=== PATIENT | female | born 1970 | race Caucasian/White ===

== ENCOUNTER 2020-09-07 07:45 | Outpatient (REF) | payer BC, SELFPAY ==
--- NOTE | ~2020-09-07 | XR_ITS ---
EXAMINATION: XR SHOULDER, RIGHT CLINICAL INFORMATION: Pain COMPARISON: May 30, 2014 TECHNIQUE: Three-view of the right shoulder. FINDINGS: There is no evidence of acute fracture or dislocation of the right shoulder. No calcific tendinitis. Glenohumeral joint is maintained with minimal inferior spurring seen. Acromioclavicular joint unremarkable. There is again noted to be subcutaneous calcification present. XR/XR shoulder RT min 2V IMPRESSION: No significant right shoulder abnormality appreciated.
== END 2020-09-07 07:46 | disposition home or self-care (01) ==
LOC: HO.HOSX 07:45
PROVIDERS: Visit Provider Orthopaedic Surgery
DX: M25.511 Pain in right shoulder (principal)
CPT/HCPCS: 20610; 73030; J1100

== ENCOUNTER 2025-06-06 11:28 | Outpatient (AMB) | payer MEDICAID, SELFPAY ==
--- NOTE | 2025-06-06 11:29 | A.OFFVIS_ITS ---
Vital Signs 06/06/25 11:33 Height 5 ft 5 in Weight 188 lb BMI 31.3 BP 124/90 H Blood Pressure Location Rt brachial Position Sitting Respiration 16 Pulse 87 Pulse Source Pulse Oximeter Pulse Oximetry (%) 97 Oxygen Delivery Method Room Air Intake Visit Reasons: ENP hx migraines Allergies sumatriptan Adverse Reaction (Severe, Verified 06/06/25 11:48) Palpitations HPI Comments Details: Elena is a 54-year-old female patient with a past medical history of hyperlipidemia, depression, insomnia, arthritis, here today for a headache evaluation. The patient tells me today that she saw a neurologist in the past. During a pregnanacy her headache had improved and afterwards had been less intense for many years. Over the course of the last few months however she has had an increase in her headaches. They started to awaken for sleep. Currently, her headaches are occurring 3-4 days per week lasting either hours up to a full day and can be mild up to severe depending on the headache. Headaches are often throbbing and pulsating but can be pressure-like. They are primarially left-sided behind the temporal and eyes and radiate down to the neck. They are accompanied by nausea, light sensitivity, and fatigue. There are no autonomic features. Stress, dehydration, and sleep deprivation piecer up triggers. Headaches worsened with activity and improves slightly with rest. Leading up to her headaches she does have some neck pain. She denies visual auras but does have some RUE tingling when her headaches become intense in conjunction with the neck pain. She is currently on supplemental estrogen which she has been on for a year without any significant change in her headaches with use of the estrogen. Headache characteristics: Time of onset:Since childhood but worse over the course of the last few months. Location: Left-sided. Temporal and retroorbital Radiation:No Positional component:No Character:Throbbing and pressure Severity:Variable Duration: Hours up to days Frequency:3-4 days per week Acute aggravating factors:Activity and bending over Acute relieving factors:Rest Associated symptoms:Nausea, light sensitivity, and fatigue Aura:None Headache triggers:Sleep deprivation, dehydration, and stress Relation to menses: 2 years in menopause but in the past had migraines with her menses Other related background information: Sleep:Has been sleeping horrible since menopause. She has tried marajuana gummies but they do not help Stressors: She notes high levels of stress at home Hydration:Drinks 64-96oz per day Caffeine intake: 2 cups coffee per day in the morning hours Alcohol intake:None Substance use:None Tobacco use:None Last eye exam: >1 year but within 2 Last dental visit:Last week, she has a history of clenching and uses a mouth guard at night History of head injury: Concussion at 19 but no LOC Past medication trials: Sumatriptan- Allergic reaction with cold sweats, rapid pulse and change in breathing Excedrin- Works most of the time Prior workup: MRI brain without contrast 05/05/2025: No acute intracranial abnormality. T2 FLAIR hyperintense foci within the white matter, nonspecific but most likely reflecting chronic small-vessel disease. MRI cervical spine without contrast 05/05/2025: Mild multilevel degenerative changes of the cervical spine. 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 Review of Systems Const All systems reviewed & are unremarkable except as noted in HPI and below Physical Exam Const General: cooperative, healthy appearing, comfortable and no acute distress Nutritional Appearance: well nourished Orientation/consciousness: patient oriented x3 Limitations: no limitations HEENT Head: Yes normal to inspection and Yes normocephalic Eyes General: appearance normal, both eyes and all related structures Visual Oh: normal visual oh by confrontation Alignment and Position: alignment normal Periorbital: periorbital findings normal Eyelids: Yes eyelids normal Conjunctivae: conjunctivae normal Sclerae: sclerae normal Direct Ophthalmoscopy: normal light reflex, no papilledema and fundi normal bilaterally Neck Neck: Yes normal visual inspection and Yes full ROM General: Yes no CVA tenderness Back/Spine/Pelvis Back: no CVA tenderness Cervical Spine: normal cervical lordosis Thoracic/Lumbar Spine: thoracic and lumbar spine normal to inspection Neuro General: patient oriented x3, tone normal and deep tendon reflexes 2+ bilaterally Cranial nerves: Yes CN's II-XII intact bilaterally and Yes Facial sensation intact/muscles of mastication intact Cognition (Neuro): normal cognition Gait exam (Neuro): Normal gait present Motor exam (neuro): 5/5 motor strength present throughout and no tremor noted Sensory Exam: double simultaneous stimulation for sensation normal Romberg Test: Negative Pupils: Normal pupillary reactivity/response: bilateral Psych Appearance: grossly normal Mental Status: mental status grossly normal Speech and movement: Normal speech and movement present and Clear speech present Affect: normal affect Attitude: cooperative Thought process: Normal thought process present Thought content: Normal thought content present Insight: Good insight present (Psych) Judgement: Good judgement present (Psych) Assessment & Plan Assessment & Plan (1) Chronic migraine without aura without status migrainosus, not intractable: Code(s): G43.709 - Chronic migraine without aura, not intractable, without status migrainosus Category: Medical (2) Insomnia: Code(s): G47.00 - Insomnia, unspecified Category: Medical Plan Elena is a 54-year-old female patient with a past medical history of hyperlipidemia, depression, insomnia, arthritis, here today for a headache evaluation. Headaches are characteristic of migraine. Based on frequency and duration, I would classify her headacches as chronic migraine. She does take mind in environmental factors such as hydration, exercise, and good sleep habits. Still however, her sleep is very poor since menopause. She is not currently on an asleep agents. We discussed options such as first-line agents and the more novel medications. We decided for a trial of amitriptyline 10 mg for headache prevention and also to help with her sleep. I would also like her to have a strong abortive option. She has had somewhat of an allergic/severe reaction to sumatriptan in the past and I am hesitant to give her any further triptans. I would like to try her on a GEPANT for acute migraine therapy. She unfortunately has been awakening with her migraines and therefore tradi tional oral administration may not be effective for her. I would like to provide her with a trial of Zavspret which is known to be more effective if being used further away from headache onset. -Amitriptyline 10mg -trial of zavspret -follow-up in 2 months Medications: New amitriptyline 10 mg PO BEDTIME 30 tabs 5RF 30 days zavegepant 10 mg/actuation 1 spray intranasal ONCE PRN 6 ea 5RF migraine headache Coding Level of Care Code New Pt Level 4 (77273) Diagnoses Chronic migraine without aura without status migrainosus, not intractable G43.709 Insomnia G47.00
[2025-06-06 11:33] VITALS: BP 124/90; PULSE 87; RESP 16; O2SAT 97; BMI 31.3
--- OUTSIDE RECORDS SUMMARY | 2025-06-06 15:08 | XMS_ITS ---
[facility] Name [facility] Organization Unknown Encounters Encounter Type Encounter Reason Primary Diagnosis Location Date Ambulatory Plantar fascial fibromatosis Plantar fascial fibromatosis [facility] 07/30/2023 Care Team Organization Name Specialty Phone Email Start Date End Anderson briseno [facility]
--- OUTSIDE RECORDS SUMMARY | 2025-06-06 15:09 | XMS_ITS | Encounter Summary ---
Author Organization [facility] Address [address] [place] [address] Care Team Providers Care Back Filler Operator Name Role Phone Jose Luis Drew MD Primary Care Provider [phone] Encounter Details Date Type Department Care Team (Latest Contact Info) Description 01/04/2025 Lab Requisition [facility] [address] [facility] [place] [address] Yasmeen Perez MD [address] [id number] Encounter for gynecological examination (general) (routine) without abnormal findings Social History Tobacco Use Types Packs/Day Years Used Date Smoking Tobacco: Never Smokeless Tobacco: Never Alcohol Use Standard Drinks/Week Comments Yes 0 (1 standard drink = 0.6 oz pur e alcohol) Comments Unknown Sex and Gender Information Value Date Recorded Sex Assigned at Female 10/21/2024 10:49 AM EDT Legal Sex Female 12:56 PM EST Gender Identity Female 10/21/2024 10:49 AM EDT Sexual Orientation Straight 10/21/2024 10 :49 AM EDT documented as of this encounter Plan of Treatment Not on file documented as of this encounter Procedures Procedure Name Priority Date/Time Associated Diagnosis Comments PAP SMEAR Routine 01/03/2025 12:00 PM EDT Encounter for gynecological examination (general) (routine) without abnormal findings documented in this encounter Results * Pap smear (01/03/2025 12:00 PM EDT) Interpretation Negative for intraepithelial lesion or malignancy 01/07/2025 10:11 AM [facility] General Categorization Negative 01/07/2025 10:11 AM [facility] Specimen Adequacy Satisfactory for evaluation, endocervical/osorio sformation zone component absent 01/07/2025 10:11 AM [facility] Pap Methodology Liquid Based Pap Test 01/07/2025 10:11 AM [facility] Disclaimer The Pap test is a screening test which carries an inherent false negative rate. These test results should be correlated with the patient's clinical findings and history. This Pap test was processed using an automated screening system. Technical cytopathology services provided by [facility], at [address] [place] [id number] (CLIA # [id number]/Chantel Hui MD, Emergency Manager.) 01/07/2025 10:11 AM [facility] Console Pap Interpretation Reported 01/07/2025 10:11 AM [facility] Brushing/Spatula Cervix uteri structure / Unknown 01/03/2025 12:00 PM EDT 01/04/2025 7:02 AM EDT us Yasmeen Perez MD LAB CYTOLOGY ORDERABLES Final Result [facility] [address] [place] [address], documented in this encounter Visit Diagnoses Diagnosis Encounter for gynecological examination (general) (routine) without abnormal findings documented in this encounter Care Teams Back Filler Operator Relationship Specialty Start Date End Date Jose Luis Drew MD PCP - General 07/29/23 documented as of this encounter
--- OUTSIDE RECORDS SUMMARY | 2025-06-06 15:09 | XMS_ITS | Clinical Summary ---
Author Organization [facility] Address [address] [place], [place] [id number] Care Team Providers Care Audio Video Mechanic Name Role Phone Jose Luis Drew MD Primary Care Provider [phone] Allergies No known active allergies Medications Medication Sig Dispensed Refills Start Date End Date Status sertraline (ZOLOFT) 50 MG tablet Take 1 tablet (50 mg total) by mouth daily. 0 Active Multiple Vitamin (MULTI-VITAMIN PO) Take by mouth daily. 0 Active Ascorbic Acid (VITAMIN C PO) Take by mouth daily. 0 Active Multiple Vitamins-Minerals (ZINC PO) Take by mouth daily. 0 Active Meridian-3 Fatty Acids (FISH OIL PO) Take by mouth daily. 0 Active Cholecalciferol (VITAMIN D3 PO) Take by mouth daily. 0 Active Social History Tobacco Use Types Packs/Day Years Used Date Smoking Tobacco: Never Smokeless Tobacco: Never Tobacco Cessation:Counseling Given: Not Answered Alcohol Use Standard Drinks/Week Comments Yes 0 (1 standard drink = 0.6 oz pur e alcohol) occasional Sex and Gender Information Value Date Recorded Sex Assigned at Female 2023 2:14 PM EST Gender Identity Not on file Sexual Orientation Not on file Job Start Date Occupation Industry Not on file Not on file Not on file Last Filed Vital Signs Vital Sign Reading Time Taken Comments Blood Pressure 126/76 07/30/2023 12:16 PM EST Pulse 73 07/30/2023 12:17 PM EST Temperature 36.3 C (97.4 F) 07/30/2023 12:16 PM EST Respiratory Rate 11 07/30/2023 12:17 PM EST Oxygen Saturation 100% 07/30/2023 12:17 PM EST Inhaled Oxygen Concentration - - Weight 89.4 kg (197 lb) 07/30/2023 9:37 AM EST Height 165.1 cm (5' 5 ) 07/30/2023 9:37 AM EST Body Mass Index 32.78 07/30/2023 9:37 AM EST Plan of Treatment Health Maintenance Due Date Last Done Comments Hepatitis B Vaccines (1 of 3 - 3-dose series) 1972 Hepatitis C Screening 1972 Depression Screening 1984 BMI Counseling 1990 Preventative Health Evaluation 1990 DTap / Tdap / Td (1 - Tdap) 1991 Cervical Cancer Screening (Pap Smear) 1993 Colon Cancer Screening (Colonoscopy) 2017 Breast Cancer Screening (Mammogram) 2022 Shingrix-Zoster Vaccine (1 of 2) 2022 COVID-19 Vaccine (2 - season) 2025 11/27/2020 Influenza Vaccine (#1) 2025 0, 04/27/2019, 04/13/2018, Additional history exists Pneumococcal Vaccine Aged Out No long er eligible based on patient's age to complete this topic RSV Ped < 20 months Aged Out No longe r eligible based on patient's age to complete this topic Care Teams Audio Video Mechanic Relationship Specialty Start Date End Date Jose Luis Drew MD [address] [address] PCP - General Internal Medicine 07/29/23
--- OUTSIDE RECORDS SUMMARY | 2025-06-06 15:09 | XMS_ITS | Clinical Summary ---
Author Organization [facility] Address [address] [facility] [address] [place] [address] Phone Care Team Providers Care Physical Science Technician Name Role Phone Jose Luis Drew MD Primary Care Provid er Allergies No known active allergies Medications estradiol-noreth indrone (ACTIVELLA) 1-0.5 mg per tablet Take 1 tablet by mouth daily. Active magnesium oxide 400 mg magnesium Tab Take 1 tablet by mouth daily. Active multivitamin per tablet take 1 tab daily po Active ascorbic acid, vitamin C, (VITAMIN C) 500 MG tablet Take by mouth daily. Active cholecalciferol (VITAMIN D3) 25 MCG (1,000 unit) tablet Take by mouth daily. Active Hospital, Clinic, or Other Facility Administered Medication Ordered Dose Route Frequency Start Date End Date Status lidocaine (XYLOCAINE) 1% injection 7 mL 7 mL See Adm Inst Once 05/31/2025 05/31/2025 Ended triamcinolone acetonide (KENALOG-40) 40 mg/mL injection 40 mg 40 mg See Adm Inst Once 05/31/2025 05/31/2025 Ended Encounters Date Type Department Care Team Description 05/31/2025 8:40 AM EST Office Visit [facility] [address] [place] [address] [place] [address] Tc Medeiros PA-C Rotator cuff tendinitis, right (Primary Dx) from Last 3 Months Social History Tobacco Use Types Packs/Day Years Used Date Smoking Tobacco: Never Assessed Education Answer Date Recorded Are you interested in more education? Not on mitzi e 01/10/2025 Are you concerned about learning? Not on file 01/10/2025 No 01/10/2025 No 01/10/2025 Digital Access Answer Date Recorded No 01/10/2025 No 01/10/2025 Reliable internet access at home? Not on file 01/10/2025 Device with a working camera? Not on file Comments Unknown Sex and Gender Information Value Date Recorded Sex Assigned at Female 01/10/2025 9:56 AM EDT Legal Sex Female 9:54 AM EDT Gender Identity Female 01/10/2025 9:56 AM EDT Sexual Orientation Straight 01/10/2025 9: 56 AM EDT Plan of Treatment Health Maintenance Due Date Last Done Comments LIPID PANEL 1972 DEPRESSION SCREENING 1984 SMOKING Hx and SMOKELESS TOBACCO SCREENING 1985 HEPATITIS C SCREENING 1990 HIV ONE-TIME SCREENING (18-65 YEARS) 1990 PAP SMEAR 1993 COLOGUARD 2017 COLONOSCOPY 2017 COLORECTAL CANCER SCREENING 2017 FIT TEST 2017 FOBT 2017 SIGMOIDOSCOPY 2017 VIRTUAL COLONOSCOPY 2017 PNEUMOCOCCAL VACCINES (50+ years) (1 of 1 - PCV) 2022 ZOSTER VACCINES (1 of 2) 2022 INFLUENZA VACCINE (#1) 2025 , 04/27/2019, 04/13/2018, Additional history exists COVID-19 VACCINE ( - 2024- season) 2025 11/27/2020 MAMMOGRAM 01/03/2027 01/03/2025, 06/09/2024, 12/23/2022, Additional history exists Adult Td,Tdap Booster 07/30/2028 07/30/2018 , 02/09/2009, 07/14/2008 RSV VACCINE (1 - 1-dose 75+ series) 2047 HEPATITIS A VACCINES Aged Out No long er eligible based on patient's age to complete this topic HIB VACCINES Aged Out No longer eligi ble based on patient's age to complete this topic MENINGOCOCCAL VACCINES (ACWY) Aged Out No longer eligible based on patient's age to complete this topic MENINGOCOCCAL VACCINES (B) Aged Out N o longer eligible based on patient's age to complete this topic Medical Devices Not on file [place] [place] [address] [facility] Care Teams Physical Science Technician Relationship Specialty Start Date End Date Jose Luis Drew MD [address] [address] PCP - General Pediatrics 01/10/25 Additional Source Comments The information contained in this document represents components of the legal health record. It is not the complete legal health record.[facility]
--- OUTSIDE RECORDS SUMMARY | 2025-06-06 15:09 | XMS_ITS | Clinical Summary ---
Author Organization [facility] Address [address] [place] [phone] Phone Care Team Providers Care Small Business Sales Representative Name Role Phone Jose Luis Drew MD Primary Care Provider [phone] Immunizations Immunization Administration Dates Next Due [employer] SARS-CoV-2 COVID -19, vector-nr, [id number], preservative free 11/27/2020 Surgical History Surgery Date Site/Laterality Comments HAND SURGERY PROCEDURE:HAND SURGERY COLON SURGERY PROCEDURE:COLON SURGERY FOOT FASCIOTOMY 07/30/2023 Left PROCEDURE:FASCIOTOMY FOOT / TOE;COMMENT:Procedure: LEFT FASCIOTOMY FOOT / TOE; Surgeon: Ant Dykes DPM; Location: [facility]; Service: Podiatry; Laterality: Left; Medical History Medical History Date Comments Carpal tunnel syndrome 08/16/2005 DX:Carpal tunnel syndrome; COMMENT: R injected 03/18 Radial styloid tenosynovitis 08/16/2005 DX: Radial styloid tenosynovitis; COMMENT: injected before Plantar fasciitis DX:Plantar fas ciitis Anxiety DX:Anxiety Family History Medical History Relation Name Comments Diabetes Maternal Grandmother Hypertension Maternal Grandmother Other cancer Paternal Grandmother ovarian cancer Relation Name Status Comments Brother Alive Daughter Alive Father Alive Maternal Grandfather Maternal Grandmother Alive Mother Alive Paternal Grandfather Paternal Grandmother Sister 1 Alive Sister 2 Alive Social History Tobacco Use Types Packs/Day Years [...] Orientation Straight 10/21/2024 10 :49 AM EDT Obstetrics History Plan of Treatment Health Maintenance Due Date Last Done Comments Colorectal Cancer Screening: Colonoscopy 1972 Hepatitis B Vaccines (1 of 3 - 19+ 3-dose series) 1991 Cholesterol Screening (Lipid Panel) 06/11/2022 HIV Screening 06/11/2022 Hepatitis C Screening 06/11/2022 Social Influencers of Health Screening 06/11/2022 Pneumococcal Vaccine: 50+ Years (1 of 1 - PCV) 2022 Zoster Vaccines (1 of 2) 2022 Depression Screening 07/14/2024 COVID-19 Vaccine (2 - season) 2025 11/27/2020 Influenza Vaccine (#1) 2025 , 04/27/2019, 04/13/2018, Additional history exists Breast Cancer Screening 01/03/2027 01/04/20 25, 01/01/2024, 12/23/2022, Additional history exists Cervical Cancer Screening: Pap Smear 01/04/2028 01/03/2025 DTaP,Tdap,and Td Vaccines (4 - Td or Tdap) 07/30/2028 07/30/2018, 02/09/2009, 07/14/2008 RSV Immunization Adult Patients (1 - 1-dose 75+ series) 2047 HIB Vaccines Aged Out No longer eligi ble based on patient's age to complete this topic HPV Vaccines Aged Out No longer eligi ble based on patient's age to complete this topic Hepatitis A Vaccines Aged Out No long er eligible based on patient's age to complete this topic IPV Vaccines Aged Out No longer eligi ble based on patient's age to complete this topic MMR Vaccines Aged Out No longer eligi ble based on patient's age to complete this topic Meningococcal ACWY Vaccine Aged Out N o longer eligible based on patient's age to complete this topic Meningococcal B Vaccine Aged Out No l onger eligible based on patient's age to complete this topic RSV Immunization Patients Under 20 months Aged Out No longer eligible based on patient's age to complete this topic Varicella Vaccines Aged Out No longer eligible based on patient's age to complete this topic Procedures Procedure Name Priority Date/Time Associated Diagnosis Comments PAP SMEAR Routine 01/03/2025 12:00 PM EDT Encounter for gynecological examination (general) (routine) without abnormal findings MG MAMMO DIGITAL SCREENING W BLAZE BILAT Routine 01/03/2025 9:35 AM EDT Encounter for screening mammogram for breast cancer from Last 3 Months or Most Recently Relevant to Health Maintenance Results * Pap smear (01/03/2025 12:00 PM EDT) Interpretation Negative for intraepithelial lesion or malignancy 01/07/2025 10:11 AM [facility] General Categorization Negative 01/07/2025 10:11 AM [facility] Specimen Adequacy Satisfactory for evaluation, endocervical/osorio sformation zone component absent 01/07/2025 10:11 AM [facility] Pap Methodology Liquid Based Pap Test 01/07/2025 10:11 AM [facility] Disclaimer The Pap test is a screening test which carries an inherent false negative rate. These test results should be correlated with the patient's clinical findings and history. This Pap test was processed using an automated screening system. Technical cytopathology services provided by [facility], at [address] [place] [id number] (CLIA # [id number]/Chantel Hui MD, Curtain Stretcher.) 01/07/2025 10:11 AM [facility] Console Pap Interpretation Reported 01/07/2025 10:11 AM [facility] Brushing/Spatula Cervix uteri structure / Unknown 01/03/2025 12:00 PM EDT 01/04/2025 7:02 AM EDT us Yasmeen Perez MD LAB CYTOLOGY ORDERABLES Final Result [facility] [address] [place] [address], * MG Mammo Digital Screening w Blaze bilat (01/03/2025 9:35 AM EDT) Anatomical Region Laterality Modality Breast Bilateral Mammography 01/03/2025 10:0 9 AM EDT Impressions 01/03/2025 10:13 AM EDT No mammographic evidence of malignancy. A negative mammogram in the presence of a clinically suspicious palpable abnormality does not preclude the possibility of malignancy or alter the indications for biopsy. PQRI CPT II 3342F Code 90225, 11041 PQRI 225 CPT II 7025F TISSUE DENSITY: There are scattered areas of fibroglandular density. (BI-RADS category B) IMPRESSION: Benign. BI-RADS CATEGORY: 2 - BENIGN RECOMMENDATION: Screening bilateral mammogram is recommended in 1 year. Mammo Location: [facility], [address] [place] [id number] -------- FINAL REPORT -------- Dictated By: Raphael Quiroz Dictated Date: 01/03/2025 10:09 ET Assigned Physician: Raphael Quiroz Reviewed and Electronically Signed By: Raphael Quiroz Signed Date: 01/03/2025 10:13 ET Workstation ID: [id number] Transcribed By: Self Edit Transcribed Date: 01/03/2025 10:09 ET Narrative 01/03/2025 10:13 AM EDT CLINICAL: The patient is a 54 years Female presenting for routine screening mammography. COMPARISON: Most recently 01/01/2024 and most remotely 02/19/2018. TECHNIQUE: Full-field digital mammography of the breasts bilaterally consisting of tomosynthesis in MLO and CC projection is performed in the [employer] 2000-D unit. Computer aided detection utilizing the iCAD system was utilized. FINDINGS: The breasts are again seen to be composed of a combination of fatty and fibroglandular elements. A few scattered bilateral benign calcifications are without suspicious interval change. There is no suspicious cluster of microcalcifications, mass, or area of architectural distortion. There is no skin thickening or nipple retraction. Procedure Note Raphael Quiroz MD - 01/03/2025 CLINICAL: The patient is a 54 years Female presenting for routinescreening mammography. COMPARISON: Most recently 01/01/2024 and most remotely 02/19/2018. TECHNIQUE: Full-field digital mammography of the breasts bilaterallyconsisting of tomosynthesis in MLO and CC projection is performed in [email or web address] 2000-D unit. Computer aided detection utilizing the [employer] Socialystem was utilized. FINDINGS: The breasts are again seen to be composed of a combination offatty and fibroglandular elements. A few scattered bilateral benigncalcifications are without suspicious interval change. There is nosuspicious cluster of microcalcifications, mass, or area of architecturaldistortion. There is no skin thickening or nipple retraction. IMPRESSION: No mammographic evidence of malignancy. A negative mammogram in the presence of a clinically suspicious palpableabnormality does not preclude the possibility of malignancy or alter theindications for biopsy. PQRI CPT II 3342F Code 86044, 77127 PQRI 225 CPT II 7025F TISSUE DENSITY: There are scattered areas of fibroglandular density.(BI-RADS category B) IMPRESSION: Benign. BI-RADS CATEGORY: 2 - BENIGN RECOMMENDATION: Screening bilateral mammogram is recommended in 1 year. Mammo Location: [facility], [address] [place] [id number] -------- FINAL REPORT -------- Dictated By: Raphael Quiroz Dictated Date: 01/03/2025 10:09 ET Assigned Physician: Raphael Quiroz Reviewed and Electronically Signed By: Raphael Quiroz Signed Date: 01/03/2025 10:13 ET Workstation ID: [id number] Transcribed By: Self Edit Transcribed Date: 01/03/2025 10:09 ET us Self Referral Sppl IMG BI PROCEDURES Final Resul t from Last 3 Months or Most Recently Relevant to [place] [phone] [place] [facility] Care Teams Small Business Sales Representative Relationship Specialty Start Date End Date Jose Luis Drew MD PCP - General 07/29/23
== END 2025-06-06 12:12 | disposition home or self-care (01) ==
LOC: HO.HSM 11:28
PROVIDERS: Visit Provider Nurse Practitioner
DX: G43.709 Chronic migraine without aura, not intractable, without status migrainosus (principal); G47.00 Insomnia, unspecified
CPT/HCPCS: 99204

== ENCOUNTER → 2025-06-06 11:28 | Outpatient (BNVA) | payer MEDICAID, SELFPAY | PROVIDERS: Visit Provider Nurse Practitioner | DX: G43.709 Chronic migraine without aura, not intractable, without status migrainosus (principal); G47.00 Insomnia, unspecified | CPT/HCPCS: 99202 ==